=== PATIENT | female | born 1985 | race American Indian/Alaskan Native ===

== ENCOUNTER 2020-07-01 18:28 | Emergency (ER) | payer SELFPAY ==
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
[2020-07-01 20:01] LABS: Bacteria,Urine 1+ /HPF (Negative); Bilirubin,Urine NEG (Negative); Blood,Urine SM (Negative); Color,Urine Yellow (Yellow); Hyaline Casts,Urine 1 /LPF; Mucus,Urine 3+ /HPF; Protein,Urine <15 mg/dL mg/dL (Negative)
[2020-07-01 20:02] LABS: HCG Qualitative,Urine Negative (Negative)
[2020-07-01] MEDS ORDERED: KETOROLAC 30 MG/1 ML INJ IM ONE (20:05)
[2020-07-01] MEDS ORDERED: dexAMETHasone 20 MG/5 ML VIAL IM ONE (20:05)
[2020-07-01 20:37] VITALS: BP 150/96
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
[2020-07-01] MEDS ORDERED: HYDROcodone/ACETAMINOPHEN 5-325 MG TAB PO ONE (21:29)
== END 2020-07-01 21:35 | disposition home or self-care (01) ==
LOC: ED 18:28
DX: S39.012A Strain of muscle, fascia and tendon of lower back, initial encounter (principal); F17.200 Nicotine dependence, unspecified, uncomplicated; J45.909 Unspecified asthma, uncomplicated; Z79.899 Other long term (current) drug therapy; W18.39XA Other fall on same level, initial encounter; Y93.89 Activity, other specified; Y92.89 Other specified places as the place of occurrence of the external cause; Y99.8 Other external cause status
CPT/HCPCS: 72100; 81001; 81025; 96372; 99283; J1100; J1885

== ENCOUNTER 2021-03-02 08:46 | Emergency (ER) | payer SELFPAY ==
[2021-03-02] MEDS ORDERED: ACETAMINOPHEN 500 MG TAB PO ONE (10:10)
[2021-03-02] MEDS ORDERED: ONDANSETRON 4 MG ODT TAB PO ONE (10:10)
[2021-03-02 10:58] LABS: Bilirubin,Urine NEG (Negative); Blood,Urine LG (Negative); Color,Urine Yellow (Yellow); Mucus,Urine 2+ /HPF; Protein,Urine <15 mg/dL mg/dL (Negative); Urobilinogen,Urine < 2.0 mg/dL (<2.0)
[2021-03-02 10:58] LABS: Basophils # (Auto) 0.1 K/mm3 (0.0-0.1); Basophils % (Auto) 0.6 % (0.0-1.8); Eosinophils % (Auto) 0.3 % (0.0-4.3); Hematocrit 37.2 % (30.3-42.9); Hemoglobin 12.6 gm/dl (10.1-14.3); Lymphocytes % (Auto) 8.7 % (13.4-35.0); Mean Corpuscular HGB Conc 34 % (30-34); Mean Corpuscular Volume 89 fl (79-97); Monocytes # (Auto) 0.6 K/mm3 (0.0-0.8); Monocytes % (Auto) 5.5 % (0.0-7.3); Platelet Count 268 K/mm3 (140-440); Red Blood Count 4.16 M/mm3 (3.65-5.03); Red Cell Distribution Width 14.4 % (13.2-15.2)
--- NOTE | 2021-03-02 11:01 | Emergency Department Report ---
ED Abdominal Pain HPI - General Chief Complaint: Abdominal Pain Stated Complaint: PELVIC PAIN Time Seen by Provider: 03/02/21 10:05 Source: patient Mode of arrival: Ambulatory Limitations: No Limitations - History of Present Illness Initial Comments: 35-year-old female presents to the ER today with complaints of low abdominal/pelvic pain. She states that her symptoms started 2 days ago. She describes as a hot/tight pain that has been constant and radiates into her back. She also reports a white vaginal discharge and constipation. She states that her last bowel movement was about 7 days ago. She states that she is afraid to have a bowel movement because when she tries it causes pain in her lower abdominal/pelvic area. Patient states her last menstrual cycle ended about 2 days ago and this last period was typical to her previous periods. She denies any UTI symptoms. She is not any control. She states that she has not had any abdominal surgeries in the past. She denies any new recent sexual partners. She states that last sexual intercourse was prior to her menstrual cycle and she states that she typically uses protection during sexual intercourse. MD Complaint: abdominal pain -: Gradual - Related Data Previous Rx's Medication Instructions Recorded Last Taken Type DOXYCYCLINE Hyclate [Vibramycin 100 mg PO Q12HR #28 capsule 03/02/21 Unknown Rx CAP] HYDROcodone/APAP 5-325 [Depauw 1 each PO Q4HR PRN #12 tablet 03/02/21 Unknown Rx 5/325] Ondansetron [Zofran Odt] 4 mg PO Q8HR #15 tab.rapdis 03/02/21 Unknown Rx metroNIDAZOLE [Flagyl] 500 mg PO Q12HR #28 tab 03/02/21 Unknown Rx Allergies Allergy/AdvReac Type Severity Reaction Status Date / Time No Known Allergies Allergy Unverified 07/01/20 19:01 ED Review of Systems ROS: Stated complaint: PELVIC PAIN Other details as noted in HPI Comment: All other systems reviewed and negative Constitutional: denies: chills, diaphoresis, fever, malaise, weakness Eyes: denies: eye pain, eye discharge, vision change ENT: denies: ear pain, throat pain, dental pain, hearing loss, epistaxis, congestion Respiratory: denies: cough, shortness of breath, wheezing Cardiovascular: denies: chest pain, palpitations, dyspnea on exertion, edema, syncope, paroxysmal nocturnal dyspnea Gastrointestinal: abdominal pain, constipation. denies: nausea, vomiting, diarrhea, hematemesis, melena, hematochezia Genitourinary: discharge. denies: urgency, dysuria, frequency, hematuria, abnormal menses, dyspareunia Musculoskeletal: back pain Skin: denies: rash, lesions Neurological: denies: headache, weakness, paresthesias Psychiatric: denies: anxiety, depression Hematological/Lymphatic: denies: easy bleeding, easy bruising ED Past Medical Hx - Past Medical History Hx Asthma: Yes - Surgical History Additional Surgical History: dental sx - Social History Smoking Status: Current Some Day Smoker - Medications Home Medications: Home Medications Medication Instructions Recorded Confirmed Last Taken Type DOXYCYCLINE Hyclate [Vibramycin 100 mg PO Q12HR #28 capsule 03/02/21 Unknown Rx CAP] HYDROcodone/APAP 5-325 [Depauw 1 each PO Q4HR PRN #12 tablet 03/02/21 Unknown Rx 5/325] Ondansetron [Zofran Odt] 4 mg PO Q8HR #15 tab.rapdis 03/02/21 Unknown Rx metroNIDAZOLE [Flagyl] 500 mg PO Q12HR #28 tab 03/02/21 Unknown Rx ED Physical Exam - General Limitations: No Limitations General appearance: alert, other (pt appears uncomfortable ) - Head Head exam: Present: atraumatic, normocephalic, normal inspection - Eye Eye exam: Present: normal appearance, PERRL, EOMI Pupils: Present: normal accommodation - Neck Neck exam: Present: normal inspection, full ROM - Respiratory Respiratory exam: Present: normal lung sounds bilaterally - Cardiovascular Cardiovascular Exam: Present: regular rate, normal rhythm, normal heart sounds - GI/Abdominal GI/Abdominal exam: Present: soft, tenderness (Diffusely lower abdomen but more so suprapubic area). Absent: distended, rebound, rigid - External exam: Present: normal external exam Speculum exam: Present: vaginal discharge (small amt of bloody/white d/c). Absent: foreign body, tissue, laceration, other Bi-manual exam: Present: cervical motion tendernes (mild ), adnexal tenderness (left and right moderate), uterine tenderness. Absent: adnexal mass, uterine enlargement - Neurological Exam Neurological exam: Present: alert, oriented X3, CN II-XII intact, normal gait - Psychiatric Psychiatric exam: Present: normal affect, normal mood - Skin Skin exam: Present: intact ED Course Vital Signs 03/02/21 03/02/21 09:06 16:07 Temperature 99.9 F H Pulse Rate 95 H 75 Respiratory 18 16 Rate Blood Pressure 141/86 Blood Pressure 134/78 [Right] O2 Sat by Pulse 97 100 Oximetry ED Medical Decision Making - Lab Data Result diagrams: 03/02/21 10:37 03/02/21 10:37 - Radiology Data Radiology results: report reviewed Patient: JIMI TEJEDA MR#: [id number] : 1985 Acct:[id number] Age/Sex: 35 / F ADM Date: 03/02/21 Loc: ED Attending Dr: Ordering Physician: TEODORA PAN Date of Service: 03/02/21 Procedure(s): CT abdomen pelvis w con Accession Number(s): [id number] cc: TEODORA PAN CT ABDOMEN AND PELVIS WITH CONTRAST INDICATION / CLINICAL INFORMATION: Severe lower abdominal pain. TECHNIQUE: Axial CT images were obtained through the abdomen and pelvis after IV contrast. All CT scans at this location are performed using CT dose reduction for ALARA by means of automated exposure control. COMPARISON: None available. FINDINGS: LOWER CHEST: No significant abnormality LIVER: Tiny right hepatic hypodensity likely reflects a cyst. GALLBLADDER/BILIARY TREE: No significant abnormality PANCREAS: No significant abnormality SPLEEN: No significant abnormality ADRENALS: No significant abnormality KIDNEYS / URETER: No significant abnormality URINARY BLADDER: Bladder is partially decompressed, though grossly unremarkable. REPRODUCTIVE ORGANS: Uterus is unremarkable for age. Tubular fluid filled structure in the right adnexa is not definitely bowel and suspected to reflect hydrosalpinx. There is associated inflammation. No suspicious finding in the left adnexa STOMACH / SMALL BOWEL: Stomach and small bowel are normal in caliber. No evidence of bowel inflammation. COLON: The colon is unremarkable. The appendix is normal in caliber. LYMPH NODES: No significant adenopathy. VASCULATURE: No significant abnormality. OTHER: No free air, free fluid, or focal fluid collection is identified. SKELETAL SYSTEM: No acute osseous findings. IMPRESSION: 1. Tubular fluid-filled structure in the right adnexa is suspected to reflect hydrosalpinx. There are associated inflammatory changes, which may be seen with pelvic inflammatory disease. Consider further evaluation with pelvic ultrasound. Signer Name: Ovidio Kiser MD Signed: 03/02/2021 1:28 PM Workstation Name: [id number] Transcribed By: JOHANN Dictated By: OVIDIO KISER MD Electronically Authenticated By: OVIDIO KISER MD Signed Date/Time: 03/02/21 1328 DD/ 1318 TD/TT: Patient: JIMI TEJEDA MR#: [id number] : 1985 Acct:[id number] Age/Sex: 35 / F ADM Date: 03/02/21 Loc: ED Attending Dr: Ordering Physician: TEODORA PAN Date of Service: 03/02/21 Procedure(s): US transvaginal Accession Number(s): [id number] cc: TEODORA PAN ULTRASOUND PELVIS INDICATION / CLINICAL INFORMATION: pelvic pain/PID changes on CT. TECHNIQUE: Transvaginal. Duplex Color Doppler used: Yes. COMPARISON: Transabdominal ultrasound and CT from same day. FINDINGS: UTERUS: The uterus measures 8.6 x 4.5 x 4.9 cm. The uterus demonstrates a normal sonographic appearance. The endometrial stripe measures 0.4 cm. RIGHT ADNEXA: Tubular structure in the right adnexa is again seen with internal echogenic debris. This measures up to 1.9 x 1.4 cm transaxially. Right ovary measures 3.4 x 2.6 x 3.6 m, and demonstrates a normal sonographic appearance with normal ovarian Doppler flow. LEFT ADNEXA: No significant ovarian cyst or mass. Normal color Doppler blood flow. URINARY BLADDER: No significant abnormality. FREE FLUID: Trace free fluid in the cul-de-sac. No organized collection is identified. ADDITIONAL FINDINGS: None. IMPRESSION: Similar right-sided hydrosalpinx with internal debris. Signer Name: Ovidio Kiser MD Signed: 03/02/2021 4:48 PM Workstation Name: [id number] Transcribed By: JOHANN Dictated By: OVIDIO KISER MD Electronically Authenticated By: OVIDIO KISER MD Signed Date/Time: 03/02/21 1648 DD/ 1632 TD/TT: - Medical Decision Making Labs/CT abdomen pelvis/ultrasound reviewed. CT abdomen pelvis with IV contrast showed 1. Tubular fluid-filled structure in the right adnexa is suspected to reflect hydrosalpinx. There are associated inflammatory changes, which may be seen with pelvic inflammatory disease. Consider further evaluation with pelvic ultrasound. Pelvic ultrasound showed similar right-sided hydrosalpinx with internal debris. Labs -CBC showed minimally elevated white count of 11.5 but otherwise unremarkable. CMP unremarkable. hCG is negative. Urinalysis does not suggest a UTI. Wet prep is positive for BV but negative for trichomoniasis, yeast. GC is pending. Patient did have some CMT and bilateral adnexal tenderness on exam. She is currently resting the room and appears to be more comfortable than when she first arrived to the ER. She reports some improvement of her pain after Toradol and Tylenol. She is not toxic or ill-appearing. She appears well-hydrated. She is neurologically intact. She is afebrile and remaining VS stable. Discussed lab, and imaging results with patient. While talking to patient about the results she did not admits that this about 5 years ago she did have PID for which she was hospitalized. She states that at the time she was very "reckless" with her sexual activity but she states since then she has been more cautious and has been having protected sexual intercourse. 1720: Discussed case, lab results as well as CT and ultrasound with Dr. Lambert (OBGYN nurse practitioner manager) --she recommend outpatient treatment with Flagyl twice a day for 2 weeks as well as Doxy twice a day for 2 weeks and follow-up in the office in the next few days and no sexual contact. Discussed with patient recommendations per [facility]. Informed her that it is important to take the antibiotics that she will be prescribed and take it to completion and informed that it is important to follow-up with the [facility] in the next couple days. I did discuss with her worsening signs and symptoms and to return if any of the signs and symptoms occurs. She expressed understanding of instructions and agree with plan. Patient was stable at time of discharge. Critical care attestation.: If time is entered above; I have spent that time in minutes in the direct care of this critically ill patient, excluding procedure time. ED Disposition Clinical Impression: PID (pelvic inflammatory disease), Hydrosalpinx Disposition: TO HOME OR SELFCARE Is pt being admited?: No Does the pt Need Aspirin: No Condition: Stable Instructions: Pelvic Inflammatory Disease, Abdominal Pain (ED) Additional Instructions: Take the doxycycline and the Flagyl as prescribed and to completion. Do not drink any alcohol while taking the Flagyl. Take the Motrin and the hydrocodone as needed for pain. Take the Zofran as needed for nausea or vomiting. Sergio mmend no sexual intercourse until [facility] says otherwise. It is important that you follow-up with [facility] listed on your discharge instruction in the next 3 to 4 days for follow-up. Return to the ER if your symptoms worsens in any way or you develop associated fever of 100.5 or higher. Prescriptions: metroNIDAZOLE [Flagyl] 500 mg PO Q12HR #28 tab HYDROcodone/APAP 5-325 [Depauw 5/325] 1 each PO Q4HR PRN #12 tablet PRN Reason: Pain DOXYCYCLINE Hyclate [Vibramycin CAP] 100 mg PO Q12HR #28 capsule Ondansetron [Zofran Odt] 4 mg PO Q8HR #15 tab.[email or web address] Referrals: [facility] [Provider Group] - 3-5 Days GINANA LAMBERT MD [Staff Physician] - 3-5 Days Forms: Work/School Release Form(ED) Time of Disposition: 17:25
[2021-03-02] MEDS ORDERED: SODIUM CHLORIDE 0.9% 1000 ML 1,000 ML IV ONE (11:12)
[2021-03-02 11:41] LABS: Alanine Aminotransferase 9 units/L (7-56); Albumin 4.1 g/dL (3.9-5)
[2021-03-02 11:54] LABS: Bilirubin,Direct < 0.2 mg/dL (0-0.2)
[2021-03-02 12:00] LABS: BUN/Creatinine Ratio 10; Blood Urea Nitrogen 8 mg/dL (7-17); Calcium 9.1 mg/dL (8.4-10.2); Hemolysis Index 9
--- NOTE | 2021-03-02 13:33 | Cat Scan Report ---
CT ABDOMEN AND PELVIS WITH CONTRAST INDICATION / CLINICAL INFORMATION: Severe lower abdominal pain. TECHNIQUE: Axial CT images were obtained through the abdomen and pelvis after IV contrast. All CT sc ans at this location are performed using CT dose reduction for ALARA by means of automated exposure c ontrol. COMPARISON: None available. FINDINGS: LOWER CHEST: No significant abnormality LIVER: Tiny right hepatic hypodensity likely reflects a cyst. GALLBLADDER/BILIARY TREE: No significant abnormality PANCREAS: No significant abnormality SPLEEN: No significant abnormality ADRENALS: No significant abnormality KIDNEYS / URETER: No significant abnormality URINARY BLADDER: Bladder is partially decompressed, though grossly unremarkable. REPRODUCTIVE ORGANS: Uterus is unremarkable for age. Tubular fluid filled structure in the right adne xa is not definitely bowel and suspected to reflect hydrosalpinx. There is associated inflammation. N o suspicious finding in the left adnexa STOMACH / SMALL BOWEL: Stomach and small bowel are normal in caliber. No evidence of bowel inflammati on. COLON: The colon is unremarkable. The appendix is normal in caliber. LYMPH NODES: No significant adenopathy. VASCULATURE: No significant abnormality. OTHER: No free air, free fluid, or focal fluid collection is identified. SKELETAL SYSTEM: No acute osseous findings. IMPRESSION: 1. Tubular fluid-filled structure in the right adnexa is suspected to reflect hydrosalpinx. There are associated inflammatory changes, which may be seen with pelvic inflammatory disease. Consider furthe r evaluation with pelvic ultrasound. Signer Name: Ever Kiser MD Signed: 03/02/2021 1:28 PM Workstation Name: [id number]
[2021-03-02] MEDS ORDERED: KETOROLAC 30 MG/1 ML INJ IV ONE (13:45)
[2021-03-02] MEDS ORDERED: LIDOCAINE-MPF (1%) 10 MG/1 ML VIAL 5 ML INFILTRATI ONE (13:45)
[2021-03-02] MEDS ORDERED: cefTRIAXone/NS 1 GM/50 ML 1 GM/50 ML BAG IV ONE (14:28)
[2021-03-02 16:08] VITALS: BP 134/78
--- NOTE | 2021-03-02 16:08 | Ultrasound Report ---
US pelvis duplex doppler comp INDICATION / CLINICAL INFORMATION: Pelvic pain/hydrosalpinx/PID changes on CT. TECHNIQUE: Transabdominal. Duplex Color Doppler used: Yes. COMPARISON: CT March 02 2021 FINDINGS: UTERUS: Anteverted uterus Measures 8.6 x 4.5 x 4.9 cm. -Endometrial stripe measures 0.4 cm. - Mass lesions: None. RIGHT ADNEXA: There is a tubular structure seen within the right adnexa with debris. Right ovary is n ormal measuring 3.4 x 2.6 x 3.6 cm Normal color Doppler blood flow. * Please note that the images are labeled left adnexa in error when correlated with prior CT LEFT ADNEXA: Normal left ovary measuring 3.2 x 2.6 x 2.2 cm No significant ovarian cyst or mass. Norm al color Doppler blood flow. URINARY BLADDER: No significant abnormality. FREE FLUID: None. ADDITIONAL FINDINGS: None. IMPRESSION: 1. There is a nonspecific suspected right hydrosalpinx which is not well evaluated on this transabdom inal exam. Signer Name: Jamey Barraza MD Signed: 03/02/2021 4:04 PM Workstation Name: [id number]
--- NOTE | 2021-03-02 16:52 | Ultrasound Report ---
ULTRASOUND PELVIS INDICATION / CLINICAL INFORMATION: pelvic pain/PID changes on CT. TECHNIQUE: Transvaginal. Duplex Color Doppler used: Yes. COMPARISON: Transabdominal ultrasound and CT from same day. FINDINGS: UTERUS: The uterus measures 8.6 x 4.5 x 4.9 cm. The uterus demonstrates a normal sonographic appeara nce. The endometrial stripe measures 0.4 cm. RIGHT ADNEXA: Tubular structure in the right adnexa is again seen with internal echogenic debris. Thi s measures up to 1.9 x 1.4 cm transaxially. Right ovary measures 3.4 x 2.6 x 3.6 m, and demonstrates a normal sonographic appearance with normal ovarian Doppler flow. LEFT ADNEXA: No significant ovarian cyst or mass. Normal color Doppler blood flow. URINARY BLADDER: No significant abnormality. FREE FLUID: Trace free fluid in the cul-de-sac. No organized collection is identified. ADDITIONAL FINDINGS: None. IMPRESSION: Similar right-sided hydrosalpinx with internal debris. Signer Name: Ever Kiser MD Signed: 03/02/2021 4:48 PM Workstation Name: [email or web address]
== END 2021-03-02 17:51 | disposition home or self-care (01) ==
LOC: ED 08:46
DX: N73.9 Female pelvic inflammatory disease, unspecified (principal); N70.11 Chronic salpingitis; J45.909 Unspecified asthma, uncomplicated; F17.200 Nicotine dependence, unspecified, uncomplicated; Z79.899 Other long term (current) drug therapy
CPT/HCPCS: 36415; 74177; 76830; 80048; 80076; 81001; 83690; 84703; 85025; 87210; 87591; 93975; 96365; 96375; 99284; J0696; J1885; Q9967; Q0162

== ENCOUNTER 2021-07-25 22:22 | Emergency (ER) | payer SELFPAY ==
[2021-07-26 00:15] VITALS: BP 150/94
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
--- NOTE | 2021-07-26 01:09 | XRay Report ---
XR spine lumbosacral 2-3V INDICATION / CLINICAL INFORMATION: BACK INJURY. COMPARISON: CT from 03/02/2021 FINDINGS: BONES/JOINT(S): No acute fracture. No significant malalignment. PARASPINAL SOFT TISSUES:No significant abnormality. ADDITIONAL FINDINGS: None. IMPRESSION: 1. No acute findings. Signer Name: Ever Kiser MD Signed: 07/26/2021 1:05 AM Workstation Name: [id number]
--- NOTE | 2021-07-26 01:10 | XRay Report ---
XR spine thoracic 2V INDICATION / CLINICAL INFORMATION: back injury. COMPARISON: None available. FINDINGS: BONES/JOINT(S): No acute fracture. No significant malalignment. PARASPINAL SOFT TISSUES:No significant abnormality. ADDITIONAL FINDINGS: None. IMPRESSION: 1. No acute findings. Signer Name: Ever Kiser MD Signed: 07/26/2021 1:05 AM Workstation Name: [id number]
--- NOTE | 2021-07-26 01:10 | XRay Report ---
XR spine cervical 4-5V INDICATION / CLINICAL INFORMATION: neck injury. COMPARISON: None available. FINDINGS: BONES/JOINT(S): No acute fracture. No significant malalignment. PARASPINAL SOFT TISSUES:No significant abnormality. ADDITIONAL FINDINGS: None. IMPRESSION: 1. No acute findings. Signer Name: Ever Kiser MD Signed: 07/26/2021 1:05 AM Workstation Name: [email or web address]
== END 2021-07-26 01:41 | disposition home or self-care (01) ==
LOC: ED 22:22
DX: S30.0XXA Contusion of lower back and pelvis, initial encounter (principal); S20.229A Contusion of unspecified back wall of thorax, initial encounter; M54.2 Cervicalgia; V48.5XXA Car driver injured in noncollision transport accident in traffic accident, initial encounter; Y93.89 Activity, other specified; Y92.410 Unspecified street and highway as the place of occurrence of the external cause; Y99.8 Other external cause status
CPT/HCPCS: 72050; 72070; 72100; 99283